=== PATIENT | male | born 1970 | race Caucasian/White ===

== ENCOUNTER 2020-06-26 11:58 | Outpatient (CLI) | payer OTHER ==
--- NOTE | 2020-06-26 12:39 | XRAY Report ---
PROCEDURE: Foot 3 View RT INDICATIONS: POSSIBLE R 5TH TOE OR METATARSAL FX TECHNIQUE: 3 views of the foot were acquired. COMPARISON: None FINDINGS: Bones: No dislocations. No suspicious bony lesions. There is a diagonal fracture that is intra-ar ticular through the distal aspect of the fifth proximal phalanx. Soft tissues: No tibiotalar joint effusion. Achilles tendon appears normal. IMPRESSION: Nondisplaced diagonal fracture that extends into the articular surface at the fifth proximal phalanx distally. Reviewed by: Ty Martinez MD on 06/26/2020 12:37 PM PDT Approved by: Ty Martinez MD on 06/26/2020 12:37 PM PDT Station ID: [id number]
== END 2020-06-26 11:59 | disposition home or self-care (01) ==
LOC: DI.N 11:58
PROVIDERS: ATTEND Physician Assistant
DX: S92.534A Nondisplaced fracture of distal phalanx of right lesser toe(s), initial encounter for closed fracture (principal)

== ENCOUNTER 2023-03-29 14:45 | Outpatient (CLI) | payer BC, OTHER ==
[2023-03-29 18:21] LABS: BASOPHILS % (AUTO) 0.5 %; EOSINOPHILS # (AUTO) 0.1 10^3/uL (0.0-0.7); EOSINOPHILS % (AUTO) 1.2 %; HCT - HEMATOCRIT 48.8 % (42.0-52.0); HGB - HEMOGLOBIN 16.4 g/dL (14.0-18.0); LYMPHOCYTES # (AUTO) 1.1 10^3/uL (1.5-3.5); LYMPHOCYTES % (AUTO) 18.2 %; MEAN CORPUSCULAR HEMOGLOBIN 30.4 pg (27.0-31.0); MEAN CORPUSCULAR HGB CONC 33.6 g/dL (32.0-36.0); MEAN CORPUSCULAR VOLUME 90.4 fL (80.0-94.0); MEAN PLATELET VOLUME 10.1 fL (7.4-11.4); MONOCYTES # (AUTO) 0.5 10^3/uL (0.0-1.0); NEUTROPHILS # (AUTO) 4.3 10^3/uL (1.5-6.6); NEUTROPHILS % (AUTO) 71.4 %; PLT - PLATELET COUNT 137 10^3/uL (130-450); RED CELL DISTRIBUTION WIDTH 12.8 % (12.0-15.0)
[2023-03-29 18:58] LABS: THYROID STIMULATING HORMONE 1.32 uIU/mL (0.34-5.60)
[2023-03-29 19:38] LABS: ALBUMIN 4.9 g/dL (3.2-5.5); ALBUMIN/GLOBULIN RATIO 1.4 (1.0-2.2); BILIRUBIN,TOTAL 0.9 mg/dL (0.2-1.0); CALCIUM 9.6 mg/dL (8.5-10.3); CREATININE 0.8 mg/dL (0.6-1.3); POTASSIUM 3.5 mmol/L (3.5-4.5); TOTAL PROTEIN 8.5 g/dL (6.4-8.9)
== END 2023-03-29 15:00 | disposition home or self-care (01) ==
LOC: LAB.N 14:45
PROVIDERS: ATTEND Physician Assistant
DX: I49.3 Ventricular premature depolarization (principal)
CPT/HCPCS: 36415; 80053; 83735; 84443; 85025

== ENCOUNTER 2023-05-09 10:25 | Outpatient (CLI) | payer BC | END 2023-05-09 23:59 | disposition EMS.NT | LOC: EMS 10:25 | DX: T46.4X1A Poisoning by angiotensin-converting-enzyme inhibitors, accidental (unintentional), initial encounter (principal) ==

== ENCOUNTER 2023-05-09 10:46 | Emergency (ER) | payer BC ==
--- NOTE | 2023-05-09 11:27 | ED Physician Documentation ---
History of Present Illness - Stated complaint Stated Complaint: TOOK WRONG MEDICATION - Chief complaint Chief Complaint: General - History obtained from History obtained from: Patient - History of Present Illness Timing: Today Pain level max: 0 Pain level now: 0 - Additonal information Additional information: 53-year-old male presents to the emergency department stating that he accidentally took extra lisinopril rather than his prednisone yesterday and today. He was supposed to be on a prednisone taper for "bronchitis". He states that he took 7 pills of 10 mg lisinopril yesterday and 6 pills today approximately 8:30 AM. He has been asymptomatic. No hypotension. No headache. No dizziness. No vomiting. No chest pain. No shortness of breath. Review of Systems Constitutional: denies: Fever GI: denies: Vomiting PD PAST MEDICAL HISTORY - Past Medical History Past Medical History: Yes Cardiovascular: Hypertension Psych: ADD/ADHD - Past Surgical History Past Surgical History: No - Allergies Allergies/Adverse Reactions: Allergies Allergy/AdvReac Type Severity Reaction Status Date / Time No Known Drug Allergies Allergy Verified 05/09/23 11:00 - Social History Does the pt smoke?: No Smoking Status: Never smoker PD ED PE NORMAL - Vitals Vital signs reviewed: Yes - General General: Alert and oriented X 3 - HEENT HEENT: Moist mucous membranes - Neck Neck: Supple, no meningeal sign - Cardiac Cardiac: RRR, Strong equal pulses - Respiratory Respiratory: No respiratory distress, Clear bilaterally - Abdomen Abdomen: Soft, Non tender, Non distended - Derm Derm: Warm and dry - Neuro Neuro: Alert and oriented X 3 - Psych Psych: Normal mood, Normal affect Results - Vitals Vitals: Vital Signs - 24 hr 05/09/23 05/09/23 10:57 11:32 Temperature 36.2 C L Heart Rate 86 81 Respiratory 16 12 Rate Blood Pressure 156/112 H 130/75 O2 Saturation 98 97 PD Medical Decision Making - ED course Complexity details: considered differential, d/w patient ED course: Discussed the case with poison control. No observation, testing or EKG needed. Patient asymptomatic. Not hypotensive. Will have him resume his lisinopril tomorrow. Start his prednisone today. No emergency medical condition at this time. Patient counseled regarding signs and symptoms for which I believe and urgent re-evaluation would be necessary. Patient with good understanding of and agreement to plan and is comfortable going home at this time This document was made in part using voice recognition software. While efforts are made to proofread this document, sound alike and grammatical errors may occur. Departure - Departure Disposition: 01 Home, Self Care Clinical Impression: Accidental overdose Qualifiers: Encounter type: initial encounter Qualified Code(s): T50.901A - Poisoning by unspecified drugs, medicaments and biological substances, accidental (unintentional), initial encounter Condition: Good Instructions: ED Overdose Accidental Follow-Up: Keisha Schultz RN [Primary Care Provider] - As Needed Comments: You can resume your normal lisinopril tomorrow. Please return if you worsen. We spoke with poison control today and they do not recommend any further testing or monitoring at this time. If you have questions about potential overdoses in the future, you can always contact poison control at Forms: PCP List Discharge Date/Time: 05/09/23 11:40
[2023-05-09 11:48] VITALS: BP 130/75; O2SAT 97
== END 2023-05-09 11:40 | disposition home or self-care (01) ==
LOC: ED 10:46
DX: T46.4X1A Poisoning by angiotensin-converting-enzyme inhibitors, accidental (unintentional), initial encounter (principal); I10 Essential (primary) hypertension
CPT/HCPCS: 99281; 99283

== ENCOUNTER 2023-05-31 11:54 | Outpatient (CLI) | payer BC | END 2023-05-31 11:55 | disposition home or self-care (01) | LOC: DI 11:54 | PROVIDERS: ATTEND Internal Medicine | DX: I49.3 Ventricular premature depolarization (principal) | CPT/HCPCS: 93307 ==